=== PATIENT | female | born 1940 | race Caucasian/White ===

== ENCOUNTER 2018-07-18 11:11 | Outpatient (CLI) | payer OTHER | END 2018-07-18 17:00 | disposition home or self-care (01) | LOC: TOM 11:11 | DX: K63.5 Polyp of colon (principal); K62.1 Rectal polyp; K57.30 Diverticulosis of large intestine without perforation or abscess without bleeding ==

== ENCOUNTER → 2018-07-18 | Day surgery (SDC) | payer OTHER | END | disposition home or self-care (01) | LOC: ADM 07-11 12:45 → AMB-ENDOS 05:35 | DX: K63.5 Polyp of colon (principal); R15.9 Full incontinence of feces; Z12.12 Encounter for screening for malignant neoplasm of rectum; Z12.11 Encounter for screening for malignant neoplasm of colon; K64.0 First degree hemorrhoids ==

== ENCOUNTER → 2019-05-16 06:00 | Outpatient (CLI) | payer OTHER ==
[~2019-05-16 06:00] MED LIST: DAFLONEX-XL 11300 MG PO; FOSAMAX70 MG PO; PRILOSEC OTC20 MG PO
== END | disposition home or self-care (01) ==
LOC: EKG 06:00 → EDSTATUS 05-22 08:30 → CIR.AMB 05-22 08:30 → ADM 05-31 08:30
DX: K59.00 Constipation, unspecified (principal); D68.8 Other specified coagulation defects; R15.9 Full incontinence of feces; Z01.818 Encounter for other preprocedural examination; I10 Essential (primary) hypertension

== ENCOUNTER 2019-08-16 05:58 | Day surgery (SDC) | payer OTHER | END 2019-08-16 16:10 | disposition home or self-care (01) | LOC: CIR.AMB 05:58 | PROVIDERS: ATTEND Colon & Rectal Surgery | DX: R15.9 Full incontinence of feces (principal) | CPT/HCPCS: 64581; C1778 ==

== ENCOUNTER 2019-08-30 05:57 | Day surgery (SDC) | payer OTHER | END 2019-08-30 10:45 | disposition home or self-care (01) | LOC: CIR.AMB 05:57 | PROVIDERS: ATTEND Colon & Rectal Surgery | DX: R15.9 Full incontinence of feces (principal) | CPT/HCPCS: 64590; C1767 ==